=== PATIENT | male | born 1955 | race Caucasian/White ===

== ENCOUNTER 2020-07-19 00:50 | Inpatient (IN) | payer MEDICARE ==
[~2020-07-19] VITALS: Ht 182.9 cm; Wt 74.8 kg
--- NOTE | 2020-07-19 01:03 | NUR ---
KASHIF 211-B
--- NOTE | 2020-07-19 01:05 | NUR ---
PT BIBA ON A HOLD FOR DTO AND GRAVELY DISABLED. NOTED W/ AGGRESSIVE BEHAVIOR. PT UNCOOPERATIVE, NOT IN RESPIRATORY DISTRESS. PT CHANGED INTO GOWN, BELONGINGS PLACED TO LOCKER. SITTER AT BEDSIDE FOR SAFETY.
--- NOTE | 2020-07-19 01:09 | NUR ---
URINE COLLECTED AND SENT TO LAB
--- NOTE | 2020-07-19 01:09 | NUR ---
MAGNETIC GRINDER OPERATOR AT BEDSIDE FOR BLOOD DRAW
--- NOTE | 2020-07-19 01:13 | NUR ---
[employer] AT BEDSIDE
[2020-07-19 01:22] LABS: BASOPHILS # (AUTO) 0.1 /CMM (0.0-0.2); BASOPHILS % (AUTO) 0.8 % (0.0-2.0); EOSINOPHILS % (AUTO) 3.5 % (0.0-6.0); HEMATOCRIT 43 % (39-51); HEMOGLOBIN 14.3 g/dL (13.5-17.5); LYMPHOCYTES # (AUTO) 3.7 /CMM (0.8-4.8); LYMPHOCYTES % (AUTO) 33.8 % (20.0-44.0); MEAN CORPUSCULAR HGB CONC 34 g/dl (31.0-36.0); MEAN CORPUSCULAR VOLUME 94 fL (80-96); MONOCYTES % (AUTO) 9.6 % (2.0-12.0); NEUTROPHILS # (AUTO) 5.7 /CMM (1.8-8.9); NEUTROPHILS % (AUTO) 52.3 % (43.0-81.0); PLATELET COUNT (AUTO) 229 /CMM (150-450); RED BLOOD CELL COUNT(AUTO) 4.52 MIL/uL (4.5-6.0); WHITE BLOOD COUNT (AUTO) 10.8 K/uL (4.3-11.0)
[2020-07-19 01:24] LABS: APPEARANCE,URINE CLEAR (CLEAR); BILIRUBIN,URINE NEGATIVE (NEGATIVE); BLOOD, URINE NEGATIVE Ery/uL (NEGATIVE); COLOR,URINE YELLOW (YELLOW); KETONES,URINE NEGATIVE (NEGATIVE); LEUKOCYTE ESTERASE ,URINE NEGATIVE (NEGATIVE); NITRITE, URINE NEGATIVE (NEGATIVE); PROTEIN,URINE NEGATIVE (NEGATIVE); UGLUCOSE NEGATIVE (NEGATIVE); UROBILINOGEN,URINE 0.2 EU/dL (0.2)
[2020-07-19] MEDS ORDERED: OLANZAPINE 10 MG VIAL IM ONE ×2 (01:30→01:41)
[2020-07-19 01:37] LABS: ALANINE AMINOTRANSFERASE 23 U/L (12-78); ALBUMIN 3.5 g/dL (3.4-5.0); ALCOHOL, BLOOD < 3 mg/dL (0-0); ALKALINE PHOSPHATASE 76 U/L (46-116); ASPARTATE AMINOTRANSFERASE 24 U/L (15-37); BILIRUBIN,DIRECT 0.1 mg/dL (0.0-0.2); BILIRUBIN,TOTAL 0.2 mg/dL (0.2-1.0); CALCIUM, SERUM 8.5 mg/dL (8.5-10.1); CARBON DIOXIDE 25 mmol/L (21-32); CHLORIDE 103 mmol/L (98-107); CREATININE 1.5 mg/dL (0.6-1.3); GLUCOSE 154 mg/dL (74-106); POTASSIUM 3.5 mmol/L (3.5-5.1); SALICYLATE 5.3 mg/dL (2.8-20.0); SODIUM SERUM 141 mmol/L (136-145); TOTAL PROTEIN, SERUM 6.6 g/dL (6.4-8.2); UREA NITROGEN, BLOOD 16 mg/dL (7-18)
[2020-07-19 01:42] LABS: ACETAMINOPHEN 0 ug/ml (10-30)
--- NOTE | 2020-07-19 01:58 | NUR ---
REPORT GIVEN TO JULIA MARKHAM FOR STEPH
[2020-07-19] MEDS ORDERED: BLOOD SUGAR DIAGNOSTIC 1 EACH STRIP IN ONE (03:30)
--- NOTE | 2020-07-19 03:30 | NUR ---
RN NOTES : REFUSED SKIN ASSESSMENT PT. REFUSED FULL BODY SKIN ASSESSMENT SKIN ASSESSMENT AND PICTURES TO BE TAKEN ENCOURAGED X 3 STILL STRONGLY REFUSED,AND REFUSED INTIALLY BLOOD SUGAR CHECK PT. BEHAVIOR VERY UNCOOPERTIVE , AGGRESSIVE, WILL CONTINUITY WITH CARE .
[2020-07-19 04:43] VITALS: BP 110/68
--- NOTE | 2020-07-19 04:48 | NUR ---
ADMISSION NOTES: ADMITTED THIS 64Y/O MALE PATIENT ADMIT FROM [facility] ED/ INTIALLY FROM HOME, ADMITTED TO GPS, PT. IS ON 5150 HOLD PER HOLD, NOT TAKING PSYCHOTROPIC MEDICATION FOR THE PAST 6-8 WEEKS, HE IS THREATENINGS TO KILL HIS SISTER WITH BASEBALL BAT. CLIENT BECOME EASILY VIOLENT AND AGGRESSIVE TOWARDS OTHERS, CLIENT,S FAMILY ARE FEAR FOR THEIR OWN SAFETY , WITH CLIENT IN THE HOME DUE TO UBPREDICTABLE BEHAVIOR ,UPON FACE TO FACE ASSESSMENT PATIENT IS A&O X 2 AGGRESSIVE DELUSIONAL, ANXIOUS ,PARANOID , DISORGNIZED ,DISHELVED ,EASILY GETS AGITATED, UNCOPOPERTIVE,UNPREDICATBLE , PT. IS POOR HISTORIAN, POOR INSIGHT ,POOR JUDGEMENT , PT. REFUSED TO SIGNS ADMISSION CONSENT PAPERS , DUE TO MENTAL STATUS ANXIOUS/UNCOOPERTIVE, BOTH MD AWARE AND NOTIFIED OF THE ADMISSION, BELONGINGS CONTRABAND WERE DONE ,PT. RIGHTS DISCUSS BY KAYAKING INSTRUCTOR , PROVIDE THE PT. WITH HANDBOOK, AND MEDICATIONS GUIDE, ENVIRONMENTAL SAFETY CHECK DONE, ENCOURAGED PT. VERBALIZED ANY FEELING CONCERN TO STAFF, ORIENT TO UNIT POLICY, NO ACUTE DISTRESS NOTED,VITAL SIGNS WNL ,DENIES ANY PAIN AT THIS TIME,WILL CONTINUE TO MONITOR FOR Q15 SAFETY AND BEHAVIOR.
--- NOTE | 2020-07-19 04:58 | NUR ---
RN NOTES : PT. BEHAVIOR VERY AGGRESIVE UNCOOPERTIVE , UNPREDICTABLE ,AND THROWING BATHROOM DOOR, CALLED CODE ILAN , PT. PROMISES I AM NOT THROWING BATHROOM DOOR, CODE ILAN WAS CLEAR AFTER THE INCIDENT. WILL CONTINUITY WITH CARE.
--- NOTE | 2020-07-19 05:14 | NUR ---
RN NOTES: UNABLE TO OBTAIN PSYCTRIC/MEDICAL HISTORY , AND UNABLE TO OBTAIN MEDICATIONS . LIST .PT. REFUSED TO PROVIDE ANY PSYCH/ MEDICAL HISTORY AND MEDICATIONS.
[2020-07-19] MEDS ORDERED: TEMAZEPAM 7.5 MG CAPSULE PO PRN (06:30)
[2020-07-19] MEDS ORDERED: MAG HYDROX/AL HYDROX/SIMETH 30 ML UDC PO PRN (06:30)
[2020-07-19] MEDS ORDERED: ACETAMINOPHEN 325 MG TABLET PO PRN (06:30)
[2020-07-19] MEDS ORDERED: MAGNESIUM HYDROXIDE 30 ML UDC PO PRN (06:30)
[2020-07-19] MEDS ORDERED: LORAZEPAM 0.5 MG TABLET PO PRN (06:30)
--- NOTE | 2020-07-19 06:30 | NUR ---
RN NOTES: CALLED PT. SISTER KATE HIGUERA NOTIFED OF ADMISSION , AT THIS NUMBER # [phone].
--- NOTE | 2020-07-19 06:49 | NUR ---
GPS RN NOTES: PT. RESTING HIS ROOM, CALM NOTED AT THIS TIME . NO S/S OF DISTRESS NOTED . NO CHANGE OF CONDITION NOTED, ALL CARE NEEDS MET ANTICIPATED. WILL CONTINUE TO MONITOR FOR SAFETY BEHAVIOR, AND ENDORSE TO AM SHIFT FOR CONTINUITY OF CARE.
[2020-07-19] MEDS ORDERED: ARIP10TA17 MT (06:57)
--- NOTE | 2020-07-19 07:12 | NUR ---
RN NOTE- RECEIVED REPORT PT IN ROOM SCREAMING AT STAFF. ATTEMPTED REDIRECT. WALKED AWAY TO SPEAK W STAFF. HEARD NOISES IN ROOM. PT IN ROOM OUT OF SIGHT, I ENTERED ROOM ,PT HOPPED INTO BED AND HAD BLOOD ON FOREHEAD. FURTHER EVALUATION REVEALED BLOOD SPOT ON WALL AND IT WAS APPARENT THAT PT STRUCK HIS HEAD ON WALL. PT SCREAMING AT STAFF THREATENING. MADE AWARE. SECURITY CALLED.
--- NOTE | 2020-07-19 07:15 | NUR ---
RN NOTE- NOTED SOUNDS COMING FROM ROOM. ON ENTERING , PT FOREHEAD BLEEEDING. PT HIT HEAD ON WALL. BLOODY JUAN DANIEL ON WALL. PT SWEARING POSTURING THREATENING STAFF. DTS DTO. DR JAMES CALLED.
--- NOTE | 2020-07-19 07:23 | NUR ---
RN NOTE: MD NOTIFICATION DR. JAMES CALLED. MESSAGE LEFT ON ANSWERING MACHINE.
--- NOTE | 2020-07-19 07:25 | NUR ---
RN NOTE- DR JAMES ORDERED ATIVAN 2MG HALDOL 5 MG BENADYL 25 MG IM. STAFF AND SECURITY AT BEDSIDE
[2020-07-19] MEDS ORDERED: LORAZEPAM INJ 2 MG/ML VIAL IM STA (07:30)
[2020-07-19] MEDS ORDERED: HALOPERIDOL LACTATE INJ 5 MG/ML VIAL IM STA (07:30)
[2020-07-19] MEDS ORDERED: diphenhydrAMINE HCL 50 MG/ML VIAL IM STA (07:30)
--- NOTE | 2020-07-19 07:45 | NUR ---
RN NOTE- EMERGENCY IM GIVEN OF HALDOL 5 MG, BENADRYL 25MG AND ATIVAN 2MG AT THIS TIME. PT COMPLIED W DIRECTION AND INSTRUCTION. 1:1 SITTER ORDERED
[2020-07-19 08:00] VITALS: BP 112/73
--- NOTE | 2020-07-19 08:50 | NUR ---
RN NOTE- PT ON 1:1 SITTER FOR DANGER TO SELF AND OTHERS. SUSTAINED SMALL ABRASION STRIKING HIS OWN HEAD AGAINST WALL. AREA ASSESSED AND CLEANED W 2X2 GAUZE. TREASURE HILL ORDERED CT SCAN OF HEAD. PT QUIET SLEEPING VS STABLE RESPIRATIONS AT 16/M IN NO DISTRESS. SLEEPING.
--- NOTE | 2020-07-19 10:00 | NUR ---
RN NOTE- PT SLEEPING 2X2 GAUZE PLACED ON ABRASION TO FOREHEAD. 1:1 SITTER AT BEDSIDE
--- NOTE | 2020-07-19 11:35 | NUR ---
RN NOTE- PT QUIET. SLEEPING. OOB TO BR W ASSIST BY 1:1 SITTER.
--- NOTE | 2020-07-19 13:50 | NUR ---
RN NOTE-- PT REFUSING TO GO TO RADIOLOGY FOR CT. 1:1 SITTER AT BEDSIDE NO BEHAVIORAL ISSUES
[2020-07-19 16:00] VITALS: BP 94/57
--- NOTE | 2020-07-19 16:00 | NUR ---
RN NOTE- PT REFUSING CT. CALLED RADIOLOGY AND EXPLAINED. NO BEHAVIORAL ISSUES. RESTING QUIETLY. 1:1 SITTER AT BEDSIDE
--- NOTE | 2020-07-19 16:30 | NUR ---
RN NOTE- CURRENT 1:1 SITTER LEAVING FOR DAY. DR JAMES PLACED ORDER FOR 1:1 SITTER DTS DTO. FLOOR LOCAL TRUCK DRIVER PULLED TO FILL IN 1:1 SITTER. PT RESTING QUIETLY. NO BEHAVIORAL ISSUES AT PRESENT. DR JAMES TO SEE PT SHORTLY
--- NOTE | 2020-07-19 17:06 | NUR ---
RN NOTE- DR JAMES ON UNIT
--- NOTE | 2020-07-19 18:37 | NUR ---
RN NOTE- DR JAMES SAW PT . PT VERBALLY DISRESPECTFUL AND LUIS ENRIQUE Peña MD. DR JAMES SP0KE W FAMILY. ORDERS WRITTEN. COMPLIED
[2020-07-19 19:54] VITALS: BP 91/47
--- NOTE | 2020-07-19 20:39 | NUR ---
GPS RN NOTES: RECEIVED PT LAYING ON BED. ALERT AND ORIENTED X3, APPEARS DEPRESSED, BLUNT AFFECT, DISORGANIZED, LABILE, PASSIVE, UNCOOPERATIVE, IRRITABLE, AGGRESSIVE. PT V/S 91/47, P53, O2 99%, R 18, T97.8. PT OFFERED FLUID BUT REFUSED AND GOT IRRITATED. PT IS CURRENTLY ON [place]G POSITION TO HELP WITH HYPOTENSION. DENIES SI AT THIS TIME. RESPIRATION EVEN AND UNLABORED WITH EQUAL RISE AND FALL OF THE CHEST, ON ROOM AIR. NO S/S OF DISTRESS. PT ON 1:1 SITTER. WILL CONTINUE TO MONITOR Q15 MINS AND Q1 HR FOR SAFETY, MOOD, AND BEHAVIOR.
[2020-07-19] MEDS: BENZTROPINE MESYLATE (1 MG) 1 MG TABLET PO SCH (21:00)
[2020-07-19] MEDS: HALOPERIDOL 5 MG TABLET PO SCH (21:00)
--- NOTE | 2020-07-19 21:41 | NUR ---
PT REFUSED 2100 AND 2200 MEDICATIONS COGENTIN 1MG, 1 TAB PO, HALDOL 5MG, 1 TAB PO, AND DEPAKOTE 250MG, 1 TAB PO. PT V/S AT 2135 BP 90/56, P55, R 17, O2 98%, T97.4. PT WAS OFFERED FLUID AND SNACKS AGAIN, BUT REFUSED BOTH. PER PT "MY BLOOD PRESSURE IS ALWAYS LOW ANYWAY". PT IS CURRENTLY LAYING ON BED AWAKE. WILL CONTINUE TO MONITOR.
[2020-07-19] MEDS: DIVALPROEX SODIUM 250 MG TABLET.DR PO SCH (22:00)
[2020-07-19] MEDS ORDERED: LORAZEPAM INJ 2 MG/ML VIAL IM ONE (23:00)
[2020-07-19] MEDS ORDERED: HALOPERIDOL LACTATE INJ 5 MG/ML VIAL IM ONE (23:00)
[2020-07-19] MEDS ORDERED: diphenhydrAMINE HCL 50 MG/ML VIAL IM PRN (23:00)
[2020-07-20] MEDS ORDERED: DIVALPROEX SODIUM 125 MG TABLET.DR PO SCH
--- NOTE | 2020-07-20 00:15 | NUR ---
GPS RN NOTES: AT 2255 PT BECAME AGITATED, AGGRESSIVE, COMBATIVE WITH STAFF, SCREAMING "I WANT TO GET THE FUCK OUT OF HERE, FUCK REBECCA", THREW A PITCHER OF WATER AT STAFF, TRIED BANGING HIS HEAD ON THE WALL, REFUSING REDIRECTION. ANGELIC GUNTER CALLED. DR JAMES CALLED AT 2300 AND ORDER GIVEN FOR 4 POINT RESTRAINT AND ATIVAN 2ML, HALDOL 5ML, BENADRYL 25ML/IM. PT V/S BEFORE IM MEDICATIONS, BP137/76, P85, R19, O2 97%. MEDICATIONS ADMINISTERED AT 2310. PT HAS 1:1 SITTER AND IS ON 4 POINT RESTRAIN ORDERED. PT REASSESSED AT 0010 AND V/S TAKEN, BP109/73, P60, R18, O2 98%. PT IS STILL AGITATED AND SCREAMING INTERMITTENTLY. PT SISTER DAVIDA VELASCO INFORMED OF PT BEHAVIOR AND IM MEDICATIONS GIVEN. WILL CONTINUE TO MONITOR AND REASSESS PER GPS PROTOCOL.
--- NOTE | 2020-07-20 00:51 | NUR ---
GPS RN NOTES: PT CURRENTLY YELLING AND SCREAMING "FUCK YOUR MOTHERS, FUCK YOUR CHILDREN, FUCK ALL OF YOU, GET ME OUT OF HERE". STILL UNABLE TO FOLLOW VERBAL DIRECTION OR CONTRACT FOR SAFETY. WILL CONTINUE TO MONITOR AND ASSESS.
--- NOTE | 2020-07-20 02:00 | NUR ---
GPS RN NOTE: PT WAS RELEASED FROM 4 POINT RESTRAINT AT 0130 AFTER PT VERBALLY CONTRACTED FOR SAFETY STATING "I WANT TO GO LAY ON MY BED, AND I WILL NOT HARM MYSELF OR ANYONE". PT VITAL SIGNS AT 0130: BP118/75, P51, R17, O2 SAT 98%. PT WAS ESCORTED TO HIS ROOM BY STAFF AND SECURITY AND OFFERED JUICE FOR HYDRATION. PT INITIALLY REFUSED JUICE BUT WITH ENCOURAGEMENT PT DRANK ABOUT 300ML. PT IS CURRENTLY SLEEPING AND HAS A 1:1 SITTER WITH HIM. RESPIRATION EVEN AND UNLABORED WITH EQUAL RISE AND FALL OF THE CHEST ON ROOM AIR. WILL CONTINUE TO MONITOR AND ASSESS PER GPS POLICY.
--- NOTE | 2020-07-20 06:40 | NUR ---
GPS RN CLOSING NOTES: PT IS CURRENTLY SLEEPING ON BED. NO S/S OF DISTRESS, RESPIRATION EVEN AND UNLABORED WITH EQUAL RISE AND FALL OF THE CHEST ON ROOM AIR. ALL PT CARE NEEDS MET ANTICIPATED. 1:1 SITTER BY PT'S BED SIDE. WILL CONTINUE TO MONITOR AND ENDORSE TO AM SHIFT.
[2020-07-20 08:00] VITALS: BP 108/78
[2020-07-20] MEDS: BENZTROPINE MESYLATE (1 MG) 1 MG TABLET PO SCH ×3 (09:00→21:11)
[2020-07-20] MEDS ORDERED: BENZTROPINE MESYLATE (1 MG) 1 MG TABLET PO SCH ×2 (09:00)
[2020-07-20] MEDS: DIVALPROEX SODIUM 250 MG TABLET.DR PO SCH ×3 (09:00→21:11)
[2020-07-20] MEDS: HALOPERIDOL 5 MG TABLET PO SCH ×3 (09:00→21:11)
[2020-07-20] MEDS ORDERED: HALOPERIDOL 5 MG TABLET PO SCH ×2 (09:00)
--- NOTE | 2020-07-20 09:06 | NUR ---
WOUND CARE CONSULT: DRY ABRASION NOTED TO FOREHEAD. PT DENIES TENDERNESS. NO DRAINAGE OR ERYTHEMA NOTED. WILL SEE PRN. CURRENT TASHI SCORE IS 21.
--- NOTE | 2020-07-20 09:15 | NUR ---
GPS RN NOTE: PT IN THE ROOM SITTING AND EATING HIS BREAKFAST. PT EAT 100% MEAL DRINK WATER, VSS,PT EASILY AGITATED, ANGRY MOOD, CONCENTRATING ON LIVING . REFUSED AM MEDICATION OFFERED AND EXPLAIN X2 PT CONTINUE REFUSING AND GETTING AGITATED. DR JAMES NOTIFIED WITH NEW ORDER ATIVAN 1 MG PO Q 4 HR PRN, ORDER PLACED AND CARED OUT.
[2020-07-20] MEDS ORDERED: LORAZEPAM 0.5 MG TABLET PO PRN (09:30)
[2020-07-20] MEDS: LORAZEPAM 1 MG TABLET PO PRN ×2 (09:43→17:11)
--- NOTE | 2020-07-20 09:47 | NUR ---
GPS RN NOTE: ANXIETY PT RESTING IN BED 1;1 SITTER AT THIS SIDE PT WILLING TO TAKE ATIVAN . ATIVAN 1 MG PO PRN GIVEN PER ORDER WILL CONTINUE MONITORING FOR SAFETY AND BEHAVIOR Q 15 MIN.
--- NOTE | 2020-07-20 10:17 | NUR ---
PT NOT READY PER RN JOSE, WILL CALL WHEN READY
--- NOTE | 2020-07-20 10:26 | NUR ---
FAMILY CONTACT: SW contacted pts sister Ronda ([phone]) for collateral information and treatment/discharge planning. Sister states that pt currently lives with her, however due to his aggressive/combative behavior and non-compliance with medication and pt threatening to kill her she states that she fears for her safety and wishes for pt to be placed at a locked SNF. She states that pt was LPS conserved and she was his conservator until a year ago when she let the conservatorship due to pt being stable and compliant with medication. Sister states that pt has been non-complaint with medication for 6 months and states that she is currently in the process of applying for LPS conservatorship
--- NOTE | 2020-07-20 11:12 | NUR ---
INITIAL DISCHARGE PLAN: Per sister Ronda ([phone]) pt resides in her home [address] [place] [address], [id number]. However, due to pts aggressive/combative behavior and non-compliance with medication and pt threatening to kill her, she no longer wishes for pt to live with her and is requesting pt be placed at a locked SNF. ALISON will help form a safe and proper discharge in collaboration with .
--- NOTE | 2020-07-20 14:06 | NUR ---
FAMILY CONTACT: SW received a call from pts sister Ronda ([phone]) stating that pts outside psychiatrist does not feel comfortable filing for LPS conservatorship due to him not knowing pt very well and pt not being under his care for that long. Sister is requesting that MD at [facility] help her file for LPS Conservatorship. SW explained LPS conservatorship mental health laws and explained that in order for MD at [facility] to file for LPS conservatorship pt has to be hospitalized 3 consecutive times at the same hospital under the care fo the same psychiatrist within a year. SW explained that this is an acute psychiatric facility and that once pt is stable he will be discharged. SW explained that the average lengthy of stay is 7-10 days depending on pts compliance and cooperation with treatment. SW mentioned that MD will file for a medication capacity hearing and that pt may be hospitalized for longer than 10 days. SW explained that LPS conservatorship is a lengthy process and it requires a pt to be hospitalized for 6 months to a year and informed her that as soon as pt is stable he will be discharged to a SNF. Sister became frantic and stated that pt will kill her if he is not conserved. SW provided empathetic listening and informed her that if she feels threatened by pt she should seek legal action. Sister stated that she should have never allowed for pts LPS conservatorship to and regrets it now as she was not aware how difficult it is to re-file for LPS conservatorship.
--- NOTE | 2020-07-20 15:38 | NUR ---
GPS RN NOTE: PT IN THE ROOM CALM AT THIS TIME, STILL EASILY AGITATED WHEN ASKED QUESTIONS. EXPLAIN PT REGARDING DR ORDER TO DO SC SCAN OF HEAD ,PT REFUSING X2 EXPLAIN RISK AND BENEFITS PT CONTINUE TO REFUSE. WILL MONITORING FOR ANY CHANGES.
[2020-07-20 16:00] VITALS: BP 129/58
--- NOTE | 2020-07-20 17:11 | NUR ---
GPS RN NOTE: PT RESTLESS AGITATED ATIVAN 1 MG PO PRN GIVEN
[2020-07-20 17:27] LABS: CHOLESTEROL 156 mg/dL (<200); HDL CHOLESTEROL 40 mg/dL (40-60); LDL 107 mg/dL (0-99); TRIGLYCERIDES 85 mg/dL (30-150)
[2020-07-20 20:17] VITALS: BP 100/65
--- NOTE | 2020-07-20 22:10 | NUR ---
GPS RN NOTES: PT IN BED AWAKE IN HIS ROOM. PT REQUESTED TO PUT HIS HEAD UP. OFFERED PT SNACKS AND FLUID. PT AGREED AND ATE A SANDWICH AND DRANK WATER/ JUICE. PT WENT BACK TO SLEEP. SITTER AT BEDSIDE. CONTINUE TO MONITOR.
[2020-07-21 06:20] VITALS: BP 112/67
--- NOTE | 2020-07-21 06:29 | NUR ---
GPS RN NOTE: PT IN THE ROOM CALM AT THIS TIME SITTING IN HIS BED. PT IS EASILY AGITATED WHEN ASKED QUESTIONS. EXPLAIN PT REGARDING DR ORDER TO DO SC SCAN OF HEAD. PT STATED, "NOT RIGHT NOW. IM DOING SOMETHING." WILL MONITORING FOR ANY CHANGES. WILL ENDORSE TO DAY SHIFT TO ASK PT AGAIN.
[2020-07-21 08:00] VITALS: BP 100/55
[2020-07-21] MEDS: BENZTROPINE MESYLATE (1 MG) 1 MG TABLET PO SCH ×3 (08:26→16:41)
[2020-07-21] MEDS: DIVALPROEX SODIUM 250 MG TABLET.DR PO SCH ×3 (08:26→21:33)
[2020-07-21] MEDS: HALOPERIDOL 5 MG TABLET PO SCH ×2 (08:27→21:32)
[2020-07-21] MEDS: LORAZEPAM 1 MG TABLET PO PRN ×2 (09:20→13:20)
--- NOTE | 2020-07-21 14:56 | NUR ---
INDIVIDUAL INTERVENTION: Pt is on a 1:1 for aggressive behavior, pt was asleep and not easily roused by verbal cues.
[2020-07-21 16:00] VITALS: BP 127/66
[2020-07-21] MEDS: HALOPERIDOL 1 MG TABLET PO SCH (16:41)
[2020-07-21 20:17] VITALS: BP 102/49
[2020-07-21 21:32] VITALS: BP 108/50
[2020-07-21] MEDS ORDERED: HALOPERIDOL 5 MG TABLET PO SCH (22:00)
--- NOTE | 2020-07-22 02:00 | NUR ---
NURSES NOTES: PATIENT NOTED BY STAFF AND SITTER TO BE AWAKE AND STARTING TO PACE WHILE IN THE ROOM. DELIVERY TRUCK DRIVER HEAVY THEN PULLED OUT ATIVAN MEDICATION TO GIVE TO PATIENT. WHEN AT PATIENT'S ROOM AND OFFERED HIS MEDICATION, PATIENT WAS ALREADY BACK IN HIS BED AND STATED " NO I DON'T NEED IT RIGHT NOW, I'M GOING BACK TO SLEEP" THEN PATIENT TURNED HIS BACK TO GO BACK TO SLEEP. DELIVERY TRUCK DRIVER HEAVY ALSO OFFERED HIS SLEEP MEDICATION, PATIENT ANSWERED: "NO, I DON'T NEED IT RIGHT NOW, I'LL SLEEP". PATIENT QUIETLY COVERED HIMSELF WITH HIS BLANKET. 1:1 SITTER MAINTAINED.
[2020-07-22] MEDS: LORAZEPAM 1 MG TABLET PO PRN ×2 (04:04→19:53)
--- NOTE | 2020-07-22 04:07 | NUR ---
NURSES NOTES: PATIENT AWAKE, GOT OUT OF BED AND STARTING TO DISCUSS WITH SITTER HIS COURT APPOINTMENTS. PATIENT THEN REDIRECTED BY STAFF AND OFFERED HIS ATIVAN 1MG PO- TAKEN PRN ORDER. WILL MONITOR PATIENT'S BEHAVIOR AND MOOD.
[2020-07-22 08:00] VITALS: BP 107/69
[2020-07-22] MEDS: DIVALPROEX SODIUM 250 MG TABLET.DR PO SCH ×3 (08:03→21:23)
[2020-07-22] MEDS: BENZTROPINE MESYLATE (1 MG) 1 MG TABLET PO SCH ×3 (08:03→17:01)
[2020-07-22] MEDS: HALOPERIDOL 1 MG TABLET PO SCH ×2 (08:03→17:01)
--- NOTE | 2020-07-22 09:00 | NUR ---
RN NOTE-1:1 HO VANCE. PT CONTRACTS FOR SAFETY. MED COMPLIANT INTERACTIVE W STAFF AND PEERS WALKING HALLS DENIES SI HI AH VH PARANOID AND GUARDED
--- NOTE | 2020-07-22 09:07 | NUR ---
Pt. is compliant on meds, calm, cooperative and follows direction. Pt. said he will contract for safety while he is in the hospital. Dr. Baker made aware and discontinued the 1:1.
--- NOTE | 2020-07-22 13:38 | NUR ---
FAMILY CONTACT: SW received a call from pts sister Ronda ([phone]) requesting updated information. SW informed her that pt has filed for a WRIT. Sister states that pt has been calling her stating that he wants to go after the post office and a government agency for turning against him. Sister states that pt is delusion and paranoid and cannot return to her home. SW informed her that pt is med-compliant and provided a list of medications.
--- NOTE | 2020-07-22 15:02 | NUR ---
Per pt. he doesn't want to file a Writ at this time and will wait next week for his hearing.
--- NOTE | 2020-07-22 15:31 | NUR ---
SNF REFERRAL: ALISON faxed SNF referral to [facility] ([facility]) [address] [place] [address] P: [phone] for review.
--- NOTE | 2020-07-22 15:31 | NUR ---
INDIVIDUAL INTERVENTION: SW discussed pts discharge plan and request for WRIT hearing. Pt stated that at this time he has rescinded his request for WRIT and states that he will wait until he has his Probable Cause Hearing. Pt also states that he wants to be discharged to a homeless fdc. SW encouraged pt to accept SNF placement and discussed benefits of being placed at a SNF. Pt agreed to SNF placement.
[2020-07-22 16:00] VITALS: BP 139/97
--- NOTE | 2020-07-22 19:55 | NUR ---
RN NOTES : ANXIETY PT. PACING IN HALLWAY WALKING AROUND THE UNIT.ANXIOUS HYPERVERBAL, PARANOID, ATIVAN 1 MG PO PRN GIVEN PER ORDER ,WILL CONTINUE MONITORING FOR SAFETY AND BEHAVIOR Q 15 MIN
[2020-07-22 20:07] VITALS: BP 131/60
[2020-07-22] MEDS: HALOPERIDOL 5 MG TABLET PO SCH (21:23)
--- NOTE | 2020-07-23 02:26 | NUR ---
GPS-RN NOTE: INSOMNIA PATIENT C/O UNABLE TO SLEEP. ADMINISTERED RESTORIL 7.5MG PO ORDERED. WILL CONTINUE TO MONITOR.
[2020-07-23] MEDS: BENZTROPINE MESYLATE (1 MG) 1 MG TABLET PO SCH ×3 (07:48→16:14)
[2020-07-23] MEDS: DIVALPROEX SODIUM 250 MG TABLET.DR PO SCH ×3 (07:48→21:38)
[2020-07-23] MEDS: HALOPERIDOL 1 MG TABLET PO SCH (07:49)
[2020-07-23 08:00] VITALS: BP 108/89
[2020-07-23 16:00] VITALS: BP 108/57
[2020-07-23] MEDS: HALOPERIDOL 5 MG TABLET PO SCH ×2 (16:14→21:38)
[2020-07-23 20:00] VITALS: BP 120/73
[2020-07-24] MEDS: DIVALPROEX SODIUM 250 MG TABLET.DR PO SCH ×3 (07:26→21:08)
[2020-07-24] MEDS: HALOPERIDOL 5 MG TABLET PO SCH ×3 (07:26→21:07)
[2020-07-24] MEDS: BENZTROPINE MESYLATE (1 MG) 1 MG TABLET PO SCH ×3 (07:26→17:01)
[2020-07-24 08:00] VITALS: BP 100/60
[2020-07-24 16:00] VITALS: BP 97/67
[2020-07-24 19:42] VITALS: BP 107/53
--- NOTE | 2020-07-24 22:42 | NUR ---
GPS RN NOTES: REFUSED WEEKLY BODY ASSESSMENT PT REFUSED WEEKLY BODY ASSESSMENT. EXPLAIN RISKS AND BENEFITS. PT STILL REFUSED X3. CONTINUE TO MONITOR.
--- NOTE | 2020-07-25 07:21 | NUR ---
GPS RN NOTES PATIENT IN THE ROOM, AWAKE, HAVING BREAKFAST. PATIENT IS CALM AT THIS TIME; NO S/S OF DISTRESS NOTED. WILL CONTINUE TO MONITOR FOR SAFETY BEHAVIOR.
[2020-07-25 08:00] VITALS: BP 105/58
[2020-07-25] MEDS: HALOPERIDOL 5 MG TABLET PO SCH ×3 (08:51→21:44)
[2020-07-25] MEDS: BENZTROPINE MESYLATE (1 MG) 1 MG TABLET PO SCH ×3 (08:51→16:25)
[2020-07-25] MEDS: DIVALPROEX SODIUM 250 MG TABLET.DR PO SCH ×2 (08:51→12:40)
[2020-07-25 16:00] VITALS: BP 110/71
--- NOTE | 2020-07-25 16:03 | NUR ---
Probable Cause Hearing: Patient had his probable cause hearing today which was upheld for Grave Disability and Danger to Others.
--- NOTE | 2020-07-25 16:05 | NUR ---
ALISON INDIVIDUAL INTERVENTION: SW spoke with patient to discuss discharge planning. SW offered patient alternate placement such as [facility] facility. Patient seemed to think about the option, however he refused. Patient stated that he would like to go to [facility] [id number] [place] [address] however patient does not have any money, identification card, or debit card with him. Patient stated he is moving forward with filing for a WRIT. This speech writer will attempt to speak with the patient again tomorrow regarding safe discharge planning.
--- NOTE | 2020-07-25 16:20 | NUR ---
SNF REFERRAL: SW received a call from Andriy from [facility] ([facility]) [address] [place] [address] P: [phone] stating they reviewed the patient's referral and can accept the pt at their sister facility, [facility] ([phone]) [address] [place] [address].
--- NOTE | 2020-07-25 19:24 | NUR ---
GPS RN NOTES PATIENT AMBULATING AROUND UNIT WITH STEADY GAIT; PATIENT IS CALM AT THIS TIME; NO S/S OF DISTRESS NOTED. WILL CONTINUE TO MONITOR FOR SAFETY BEHAVIOR.
[2020-07-25 19:50] VITALS: BP 119/60
[2020-07-26 07:18] LABS: BASOPHILS # (AUTO) 0.1 /CMM (0.0-0.2); EOSINOPHILS % (AUTO) 2.7 % (0.0-6.0); HEMATOCRIT 40 % (39-51); HEMOGLOBIN 13.2 g/dL (13.5-17.5); LYMPHOCYTES # (AUTO) 1.3 /CMM (0.8-4.8); LYMPHOCYTES % (AUTO) 25.4 % (20.0-44.0); MEAN CORPUSCULAR HGB CONC 33 g/dl (31.0-36.0); MEAN CORPUSCULAR VOLUME 94 fL (80-96); MONOCYTES # (AUTO) 0.6 /CMM (0.1-1.30); MONOCYTES % (AUTO) 11.1 % (2.0-12.0); NEUTROPHILS % (AUTO) 59.8 % (43.0-81.0); PLATELET COUNT (AUTO) 176 /CMM (150-450); RED BLOOD CELL COUNT(AUTO) 4.28 MIL/uL (4.5-6.0)
[2020-07-26 08:00] VITALS: BP 104/65
[2020-07-26 08:00] LABS: ALBUMIN 3.2 g/dL (3.4-5.0); BILIRUBIN,TOTAL 0.6 mg/dL (0.2-1.0); CALCIUM, SERUM 8.3 mg/dL (8.5-10.1); POTASSIUM 4.1 mmol/L (3.5-5.1); TOTAL PROTEIN, SERUM 6.2 g/dL (6.4-8.2)
--- NOTE | 2020-07-26 09:00 | NUR ---
RN NOTE- PT IN ROOM AND VISIBLE ON UNIT WARY OF STAFF AND PEERS GUARDED PARANOID FOCUS ON RNC AND POLITICAL ISSUES. FILED WRIT FOCUS ALSO DC DENIES SI HI AH VH PO INTAKE GOOD MED COMPLIANT VALPROIC ACID LEVEL 32 - (50-100) MONITOR FOR CHEEKING RX
[2020-07-26] MEDS: BENZTROPINE MESYLATE (1 MG) 1 MG TABLET PO SCH ×3 (09:17→17:00)
[2020-07-26] MEDS: DIVALPROEX SODIUM 500 MG TABLET.DR PO SCH ×3 (09:17→17:00)
[2020-07-26] MEDS: HALOPERIDOL 5 MG TABLET PO SCH ×3 (09:17→22:05)
--- NOTE | 2020-07-26 10:53 | NUR ---
ALISON FAMILY CONTACT: ALISON spoke with patients sister, Ronda ([phone]) and informed of the discharge plan tomorrow to [facility] and she is agreeable. Ronda expressed her concerns regarding having had an LPS Conservatorship which she regrets let . This engineering writer acknowledged Ronda's frustration and provided support in proceeding with another LPS conservatorship. Ronda expressed further concerns about the length of stay at [facility] and what would happen beyond the medicare covered days. This engineering writer informed her that the nursing facility can facilitate LPS conservatorship and will work with the patient and family regarding length of stay, payment,m and discharge planning for continued treatment. Ronda was appreciative and understanding.
[2020-07-26 16:00] VITALS: BP 90/50
--- NOTE | 2020-07-26 17:33 | NUR ---
RN NOTE- PTS B/P HAS BEEN RUNNING LOW. HYPOTENSIVE. RECHECK AFTER DINNER - B/P 95/64, APICAL HR -62. HOLDING HALL LACHELLE BOWEN AT THIS TIME
--- NOTE | 2020-07-26 18:50 | NUR ---
RN NOTE- COVID TEST ORDERED FOR PLACEMENT. CALLED INTO LAB. WILL PASS ON TO NOC SHIFT
[2020-07-26 19:56] VITALS: BP 136/72
--- NOTE | 2020-07-27 01:31 | NUR ---
GPS RN NOTE: 07/26/20202102. SARS-CoV Ag (Rapid): Negative
--- NOTE | 2020-07-27 07:00 | NUR ---
GPS RN CLOSING NOTES: PT AWAKE AND ALERT. NO BEHAVIORAL ISSUES THIS SHIFT. MED COMPLIANT. PT SLEPT FOR 8HRS. NO S/S OF DISTRESS. PT WILL BE DISCHARGING TODAY AT 10:00. RESPIRATION EVEN AND UNLABORED WITH EQUAL RISE AND FALL OF THE CHEST ON ROOM AIR. ALL PT CARE NEEDS MET ANTICIPATED. WILL CONTINUE TO MONITOR AND ENDORSE TO AM SHIFT.
[2020-07-27 08:00] VITALS: BP 100/67
[2020-07-27] MEDS: BENZTROPINE MESYLATE (1 MG) 1 MG TABLET PO SCH (08:24)
[2020-07-27] MEDS: HALOPERIDOL 5 MG TABLET PO SCH (08:24)
[2020-07-27] MEDS: DIVALPROEX SODIUM 500 MG TABLET.DR PO SCH (08:24)
--- NOTE | 2020-07-27 08:29 | NUR ---
DISCHARGE NOTE: Patient will be discharged to [facility], [place] [address] ([phone]) via Ambulance transportation at 10:00AM today. Campus Supervisor spoke with Xiao, Cubing Machine Tender at [facility] ([phone]) who confirmed patient will be accepted at their facility today. Patient is alert and oriented x4. Patient is not able to plan for self-care at this time but is willing to accept care provided for him at the facility. Patient denies suicidal or homicidal ideation. Patient is aware and agreeable with discharge plans. Patient presents with euthymic mood and congruent affect. Patient will follow-up with Psychiatrist Dr. Baker [address] [facility] [address], [place] [address] ([phone]) and Embedded Firmware Engineer Dr. Mishra [address] [address], [place] [address] ([phone]) at the facility. Patients sisterRonda ([phone]) is made aware and is agreeable with discharge plan.
--- NOTE | 2020-07-27 11:18 | NUR ---
GPS RN NOTE: PATIENT DISCHARGED TODAY TO [facility] [address] [place] [address] VIA AMBULANCE TRIP # [id number] PATIENT IS IN STABLE CONDITION. VSS. NO ACUTE DISTRESS NOTED. NO COMPLAINTS. COMPLIANT WITH MEDICATION MANAGEMENT. COOPERATIVE WITH PLAN OF CARE. PSYCHIATRIC TREATMENT PLANS MET. MEDICAL TREATMENT PLANS DEFERRED FOR CONTINUAL MONITORING. DENIES SI/HI/VAH AT THE TIME OF DISCHARGE. PATIENT REFUSED SKIN ASSESSMENT,PICTURES TO BE TAKEN. EDUCATED PATIENT ABOUT AFTERCARE WITH COPY PROVIDED. RETURNED PERSONAL BELONGINGS TO PATIENT. MEDICATIONS RECONCILED WITH ALONG WITH PSYCHIATRIC DISCHARGE ORDERS. DISCHARGE PAPERWORK SIGNED.REPORT GIVEN TO DANIELLE MARKHAM IN THE FACILITY.
== END 2020-07-27 11:20 | DRG 885 ==
LOC: ER 00:54 → GPS 01:22
PROVIDERS: ADMIT Psychiatry & Neurology Psychiatry; ATTEND Nurse Practitioner Acute Care
DX: F25.0 Schizoaffective disorder, bipolar type (principal); N17.0 Acute kidney failure with tubular necrosis; F29 Unspecified psychosis not due to a substance or known physiological condition; F41.9 Anxiety disorder, unspecified; F17.210 Nicotine dependence, cigarettes, uncomplicated; S00.91XA Abrasion of unspecified part of head, initial encounter; X58.XXXA Exposure to other specified factors, initial encounter; Y93.9 Activity, unspecified; Y92.89 Other specified places as the place of occurrence of the external cause; R82.6 Abnormal urine levels of substances chiefly nonmedicinal as to source
CPT/HCPCS: 36415; 80048-TC; 80053-TC; 80061-TC; 80076-TC; 80164-TC; 80305; 81000-TC; 82565-TC; 85025-TC; 87081-TC; G0480; J1200; J1630; J2060; J3490